=== PATIENT | female | born 1945 | race Caucasian/White ===

== ENCOUNTER 2023-07-18 08:30 | Emergency (ER) | payer MEDICARE ==
[~2023-07-18] VITALS: Ht 170.2 cm; Wt 100.2 kg
[2023-07-18 08:59] LABS: BASOPHILS % (AUTO) 0.3 % (0.0-2.0); EOSINOPHILS # (AUTO) 0.1 K/uL (0.0-0.7); EOSINOPHILS % (AUTO) 0.8 % (0.0-6.0); HEMATOCRIT 45 % (33-45); HEMOGLOBIN 14.2 g/dL (11.5-14.8); LYMPHOCYTES # (AUTO) 0.9 K/uL (0.8-4.8); LYMPHOCYTES % (AUTO) 9.8 % (20.0-44.0); MEAN CORPUSCULAR HEMOGLOBIN 28 PG (26.0-33.0); MEAN CORPUSCULAR HGB CONC 31 g/dl (31.0-36.0); MEAN CORPUSCULAR VOLUME 88 fL (82-100); MONOCYTES # (AUTO) 0.4 K/uL (0.1-1.30); MONOCYTES % (AUTO) 4.2 % (2.0-12.0); NEUTROPHILS # (AUTO) 7.9 K/uL (1.8-8.9); NEUTROPHILS % (AUTO) 84.9 % (43.0-81.0); PLATELET COUNT (AUTO) 236 K/uL (150-450); RED BLOOD CELL COUNT(AUTO) 5.14 MIL/uL (4.0-5.2); RED CELL DISTRIBUTION WIDTH 17.9 % (11.5-15.0); WHITE BLOOD COUNT (AUTO) 9.3 K/uL (4.3-11.0)
[2023-07-18 09:09] LABS: CALCIUM, SERUM 9.3 mg/dL (8.5-10.1); CARBON DIOXIDE 31 mmol/L (21-32); CHLORIDE 101 mmol/L (98-107); CREATININE 0.9 mg/dL (0.6-1.3); GLUCOSE 184 mg/dL (74-106); POTASSIUM 3.3 mmol/L (3.5-5.1); SODIUM SERUM 139 mmol/L (136-145); UREA NITROGEN, BLOOD 19 mg/dL (7-18)
[2023-07-18 09:12] LABS: ALANINE AMINOTRANSFERASE 35 U/L (12-78); ALBUMIN 4.3 g/dL (3.4-5.0); ALKALINE PHOSPHATASE 152 U/L (46-116); ASPARTATE AMINOTRANSFERASE 29 U/L (15-37); BILIRUBIN,DIRECT 0.2 mg/dL (0.0-0.2); BILIRUBIN,TOTAL 0.7 mg/dL (0.2-1.0); TOTAL PROTEIN, SERUM 8.3 g/dL (6.4-8.2)
[2023-07-18 09:28] LABS: LIPASE > 375 U/L (16-77)
[2023-07-18] MEDS ORDERED: ONDANSETRON HCL/PF 4 MG/2 ML VIAL IV ONE ×2 (10:00→15:00)
[2023-07-18] MEDS ORDERED: MORPHINE SULFATE INJ 2 MG/ML DISP.SYRIN IV ONE ×4 (10:00→21:30)
[2023-07-18] MEDS ORDERED: IV NS 0.9% 1,000 ML BAG IV ONE ×3 (10:00→19:00)
[2023-07-18] MEDS ORDERED: ONDANSETRON HCL/PF 4 MG/2 ML VIAL ONE ×2 (10:19→14:59)
[2023-07-18] MEDS ORDERED: MORPHINE SULFATE INJ 4 MG/ML DISP.SYRIN ONE ×2 (10:19→14:57)
[2023-07-18] MEDS ORDERED: ATOR20TA PO (10:25)
[2023-07-18] MEDS ORDERED: BUPR-319 PO (10:25)
[2023-07-18] MEDS ORDERED: ACET-868 PO (10:25)
[2023-07-18] MEDS ORDERED: POTA10TA11 PO (10:25)
[2023-07-18] MEDS ORDERED: PANT40TA49 PO (10:25)
[2023-07-18] MEDS ORDERED: RIVA10TA PO (10:25)
[2023-07-18] MEDS ORDERED: FERR325T23 PO (10:25)
[2023-07-18] MEDS ORDERED: METO25TA20 PO (10:25)
[2023-07-18] MEDS ORDERED: GENT3.5O4 TOP (10:25)
[2023-07-18] MEDS ORDERED: MAG30ORA PO (10:25)
[2023-07-18] MEDS ORDERED: BISA10SU11 RC (10:25)
[2023-07-18] MEDS ORDERED: LOPE-195 PO (10:25)
[2023-07-18] MEDS ORDERED: BUDE10.2 IH (10:25)
[2023-07-18] MEDS ORDERED: TORS20TA3 PO (10:25)
[2023-07-18] MEDS ORDERED: MAGN400O6 PO (10:25)
[2023-07-18] MEDS ORDERED: LISI20TA30 PO (10:25)
[2023-07-18] MEDS ORDERED: TRAZ-257 PO (10:25)
[2023-07-18] MEDS ORDERED: DAPA5TAB PO (10:25)
[2023-07-18] MEDS ORDERED: SERT100T12 PO (10:25)
[2023-07-18] MEDS ORDERED: HYDR-3972 PO (10:25)
[2023-07-18] MEDS ORDERED: PIPERACILLIN /TAZOBACTAM 3.375 G in IV D5W 50 ML IV ONE (11:00)
[2023-07-18] MEDS ORDERED: PIPERACI/TAZO 3.375GM/D5W 50ML PB IV ONE (11:20)
[2023-07-18 11:54] LABS: APPEARANCE,URINE CLEAR (CLEAR); BILIRUBIN,URINE NEGATIVE (NEGATIVE); BLOOD, URINE 1+ Ery/uL (NEGATIVE); COLOR,URINE YELLOW (YELLOW); KETONES,URINE NEGATIVE (NEGATIVE); LEUKOCYTE ESTERASE ,URINE NEGATIVE (NEGATIVE); NITRITE, URINE POSITIVE (NEGATIVE); PROTEIN,URINE NEGATIVE (NEGATIVE); UGLUCOSE 3+ mg/dL (NEGATIVE); UROBILINOGEN,URINE 0.2 EU/dL (0.2)
[2023-07-18 12:10] LABS: WBC,URINE NONE SEEN /HPF (0-3)
[2023-07-18 12:11] LABS: ADD URINE CULTURE YES; BACTERIA,URINE Moderate /HPF (None Seen); SQUAMOUS EPITHELIAL CELL,UR Moderate /HPF (None Seen)
[2023-07-18 12:24] LABS: LACTIC ACID 2.1 mmol/L (0.4-2.0)
[2023-07-18] MEDS ORDERED: MORPHINE SULFATE INJ 2 MG/ML DISP.SYRIN ONE ×2 (16:49→21:27)
[2023-07-18 18:30] VITALS: TEMP 98.4
[2023-07-18] MEDS ORDERED: DIATR MEGLU/DIATRIZOATE SODIUM 30 ML BOTTLE (GASTROGRAPHIN) ONE (19:34)
[2023-07-18 22:23] VITALS: BP 102/60; O2SAT 97
== END 2023-07-18 22:24 | disposition left against medical advice (07) ==
LOC: ER 08:35
DX: K56.609 Unspecified intestinal obstruction, unspecified as to partial versus complete obstruction (principal); K85.90 Acute pancreatitis without necrosis or infection, unspecified; E87.6 Hypokalemia; R73.9 Hyperglycemia, unspecified; E87.20 Acidosis, unspecified; I11.0 Hypertensive heart disease with heart failure; I50.9 Heart failure, unspecified; E78.5 Hyperlipidemia, unspecified; F32.A Depression, unspecified; E66.9 Obesity, unspecified; Z79.899 Other long term (current) drug therapy
CPT/HCPCS: 99285; 74176; 96365; 96361 ×2; 96375; 93005 ×2; 74018; 96376; 85025; 80048; 87040 ×2; 87086; 83690; 80076; 81001; 36415; 83605 ×3; J2270 ×4; J2405 ×2; J2543 ×2; J7060; J7030 ×4; A4223; Q9963